=== PATIENT | female | born 1940 | race Caucasian/White ===

== ENCOUNTER 2025-01-09 22:24 | Emergency (ER) | payer MEDICARE, OTHER, SELFPAY ==
[2025-01-09 22:25] VITALS: BMI 44.2
[2025-01-09 22:26] VITALS: BP 163/83
[2025-01-09 22:51] LABS: Hematocrit 34.5 % (37.0-47.0); Hemoglobin 11.9 g/dL (12.0-16.0); Mean Corp Hgb Conc. 34.5 g/dL (33.0-37.0); Mean Corpuscular Volume 81.9 fL (81.0-99.0); Nucleated Red Blood Cells % 0 %; Platelet Count 272 10^3/uL (130-400); Red Cell Dist. Width 14.1 % (11.5-14.5)
[2025-01-09 23:10] LABS: ALT (SGPT) 18 U/L (0-35); AST (SGOT) 20 U/L (14-36); Albumin 4.6 g/dl (3.5-5.0); Alkaline Phosphatase 91 U/L (38-126); Blood Urea Nitrogen 14 mg/dl (7-17); Calcium 9.3 mg/dl (8.4-10.2); Carbon Dioxide 26 mmol/L (22-30); Chloride 99 mmol/L (98-107); Glucose 119 mg/dl (70-99); Potassium 4.0 mmol/L (3.5-5.1); Sodium 131 mmol/L (135-145); Total Protein 7.4 g/dl (6.3-8.2); eGFR > 60.00
[2025-01-09 23:15] LABS: Troponin I < 0.012 ng/ml
[2025-01-10 00:32] VITALS: BP 136/63
[2025-01-10 00:34] VITALS: BP 132/63
[2025-01-10 02:31] VITALS: BP 136/69
[2025-01-10 03:00] VITALS: BP 143/75
[2025-01-10 03:30] VITALS: BP 151/63
--- NOTE | 2025-01-10 03:37 | ED.GENMED ---
History of Present Illness
General
Chief Complaint: Blood Pressure Problem
Source: patient
Exam Limitations: none
Time Seen by Provider: 01/10/25 00:04
Nursing documentation reviewed up to this point in time: agreed with
History of Present Illness
History of Present Illness:
Note:
CHIEF COMPLAINT(S)
Numbness in both arms for two days and pain in the left arm and leg.
HISTORY OF PRESENT ILLNESS
The patient is an 84-year-old female who presents with numbness in both arms for two days and pain in the left arm and leg. Her temperature was checked and recorded at approximately 37.5�C. The patient initially hypothesized a viral cause for the
myalgia and took NyQuil. However, shortly thereafter, her blood pressure was found to be elevated at 180/100 mmHg in both arms, which was considered abnormal given her typical symptoms when experiencing hypertensive episodes. Despite elevated blood
pressures shortly after taking NyQuil, her current blood pressures and cardiac laboratory results appear to be within normal limits.
During the visit, it was noted that palpation caused increased discomfort, suggesting tenderness upon pressure. The patient denied any additional symptoms such as blurred vision, headaches, jaw pain, or slurred speech. The pain and numbness
continued despite the stable vital signs, leading to the decision to pursue further diagnostic imaging.
PAST MEDICAL AND SURGICAL HISTORY
Patient currently using Nifedipine for blood pressure management.
REVIEW OF SYSTEMS
- Neurological: Numbness in bilateral arms
- Musculoskeletal: Pain particularly in the left arm and leg.
- Constitutional: Temperature of 37.5�C
PHYSICAL EXAM
General: Alert, no acute distress.
Skin: Warm, dry.
Head: Normocephalic, atraumatic.
Neck: Supple, trachea midline.
Eye Ears, nose, mouth, and throat: Oral mucosa moist.
Cardiovascular: Normal peripheral perfusion, No edema.
Respiratory: Respirations are non-labored.
Gastrointestinal: Abdomen nondistended.
Back: Normal range of motion, Normal alignment.
Musculoskeletal: Tenderness upon palpation, otherwise normal range of motion and strength.
Neurological: Alert and oriented to person, place, time, and situation, No focal neurological deficit observed.
Psychiatric: Cooperative, appropriate mood & affect.
PLAN
- Consider administration of Tylenol for pain management over the next few days.
- Conduct a CT scan of the head to further evaluate the cause of the numbness and pain, though not urgently indicative.
DIFFERENTIAL DIAGNOSIS
The Differential Diagnosis includes, in no particular order and is not limited to:
1. Cervical radiculopathy
2. Peripheral neuropathy
3. Carpal tunnel syndrome
4. Brachial plexus neuropathy
5. Stroke or transient ischemic attack
6. Hypertension-related effects
7. Viral infection with myalgia
8. Medication side effects
9. Mild anemia or electrolyte imbalance
10. Musculoskeletal strain
Disposition:
SUMMARY OF ENCOUNTER
The patient, an 84-year-old female with a history of hypertension, presented to the emergency department with complaints of bilateral arm pain that began a few days ago. On arrival, the symptoms had resolved. The patient�s daughter had administered
NyQuil at home prior to the visit. A CT scan was conducted and yielded negative results for any acute findings.
DISPOSITION
Discharge
PLAN
Consider administration of acetaminophen for pain management over the next few days.
INDEPENDENT REVIEW OF LABS AND INTERPRETATION OF TESTS
My independent interpretation of the CT scan indicates negative results with no acute findings.
FOLLOW-UP INSTRUCTIONS
Please follow up with primary care provider for further evaluation and management as needed.
MEDICAL DECISION MAKING
- Number and Complexity of Problems Addressed: Chronic conditions affecting care include hypertension. The differential diagnosis considered includes: cervical radiculopathy, peripheral neuropathy, carpal tunnel syndrome, brachial plexus neuropathy,
stroke or transient ischemic attack, hypertension-related effects, viral infection with myalgia, medication side effects, mild anemia or electrolyte imbalance, and musculoskeletal strain.
- Risk: Consideration of Admission/Observation: Escalation of care including admission/observation was considered given the complexity and risk of the patients presenting complaint, exam findings, and/or their underlying comorbidities. However,
ultimately, I feel the patient is safe for outpatient management with close follow-up. Reasoning: Work-up is reassuring, does not reveal any acute life/organ threatening processes, patients symptoms are well-controlled upon reevaluation,
reexamination is reassuring, vitals are stable, patient agreeable with discharge, and reliable for follow-up.
DIAGNOSIS
- Hypertension, unspecified (I10)
- Pain in upper limb, unspecified (M79.60)
Past History
Past History
ED Past Medical History: HTN and Hypercholesterolemia
Patient has exhibited threatening behavior?: No
Social History
Tobacco: Non-smoker
Alcohol: None
Drug: None
Living: with family
Phy Exam
Physical Exam
Physical Exam:
.
Course
Orders/Labs/Results
Orders:
Orders
01/09/25 22:32
Electrocardiogram (*1) Urgent
Reason for Study: Chest Pain
EKG- Treatment ONCE
01/09/25 22:42
Complete Blood Count/With Diff Urgent
Comprehensive Metabolic Panel Urgent
Troponin I Urgent
01/10/25 01:01
CT Head W/o Iv Contrast Urgent
Comment:
Reason For Exam: parestehesia
Abnormal Lab Results
01/09/25
22:42
Hgb 11.9 L g/dL
(12.0-16.0)
Hct 34.5 L %
(37.0-47.0)
Absolute Monos (auto) 0.8 H 10^3/uL
(0.1-0.6)
Lymphocytes % 20.2 L %
(20.5-51.1)
Monocytes % 9.9 H %
(1.7-9.3)
Sodium 131 L mmol/L
(135-145)
Glucose 119 H mg/dl
(70-99)
01/09/25 22:42
01/09/25 22:42
Vital Signs
Initial and Last Documented VS:
Initial Vital Signs
Temp Pulse Resp BP Pulse Ox
98.3 F 84 18 163/83 95
01/09/25 22:26 01/09/25 22:26 01/09/25 22:26 01/09/25 22:26 01/09/25 22:26
Last Documented Vital Signs
Temp Pulse Resp BP Pulse Ox
98.2 F 71 16 151/63 95
01/10/25 00:34 01/10/25 02:00 01/10/25 02:00 01/10/25 03:30 01/10/25 03:30
*Radiology
Radiology exam reviewed: radiology read reviewed
*Pulse Oximetry
SaO2: 95
Oxygen Mode of Delivery: Room air
Patient hypoxic: no
*Critical Care Note
Total Time (30-74mins, 75-104mins- exclusive of procedures): Not Applicable
Update Note
Update Note:
NAME: ABDIRASHID CHAMBERS
DATE OF EXAM: 01/10/2025
Patient No: [id number]
Physician: BRAYAN
Date of : 1940
Past Medical History (entered by Technologist):
Reason For Exam (entered by Technologist):
Other Notes (entered by Technologist): Pt arrives with daughter who is translating Macanese, pt arrives via EMS for HTN and daughter states that pt has had arm pain x 2 day. Denies trauma. Tonight pt told daughter she was having leg pain. Daughter
gave her nyquil before bedtime.
Additional Information (per [facility]):
CT HEAD
IMPRESSION:
No acute hemorrhage, herniation, or hydrocephalus. 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
No calvarial fracture.
The visualized paranasal sinuses and mastoid air cells are clear.
Case finalized on Jan 10 2025 2:57AM ET
Keith Lundberg M.D.
This report has been electronically signed and verified by the Radiologist whose name is printed above.
ED Attending Note
-
Portions of this chart may have been created with voice recognition software.� Occasional wrong word or��sound alike� substitutions may have occurred due to the inherent limitations of voice recognition software.
Discharge Plan
Departure
Patient Disposition: Home (Routine Discharge)
Date of Disposition: 01/10/25
Time of Disposition: 03:39
Patient with high blood pressure during this ER visit?: Yes
Condition: Good
Discharge Problem:
Musculoskeletal limb pain, Peripheral neuropathy, Hypertension
Instructions: High Blood Pressure (DC), Peripheral neuropathy
Prescriptions:
No Action
enalapril-hydrochlorothiazide 5-12.5 mg tablet
1 tab PO DAILY
aspirin 81 mg Tablet,Delayed Release (Dr/Ec)
81 mg PO DAILY
cholecalciferol (vitamin D3) [Vitamin D3] 50 mcg (2,000 unit) Capsule
50 mcg PO DAILY
prochlorperazine maleate 5 mg Tablet
5 mg PO Q6HPRN PRN (Reason: vertigo) Qty: 30 0RF
amlodipine 5 mg Tablet
5 mg PO DAILY Qty: 30 0RF
meclizine 25 mg Tablet
25 mg PO TID PRN (Reason: vertigo) Qty: 60 0RF
Referrals:
PRIVATE,PHYSICIAN [Family Provider, Internal Medicine]
Interventions
Interventions:
*Risk Screen - Suicide Last Done: 01/09/25 22:26
*General Assessment Last Done: 01/10/25 00:41
*Neglect/Abuse Screening Last Done: 01/09/25 22:26
*ED- Fall Risk Assessment Last Done: 01/10/25 00:41
ED- Cardiac Assessment Last Done: 01/10/25 00:41
ED- Neurological Assessment Last Done: 01/10/25 00:41
ED- Pulmonary Assessment Last Done: 01/10/25 00:41
Discharge Date and Time
Print Language: Macanese
== END 2025-01-10 03:50 | disposition home or self-care (01) ==
LOC: EMR 22:24
PROVIDERS: Emergency Medicine; EMERGENCY PHYSICIAN Student in an Organized Health Care Education/Training Program
DX: M79.18 Myalgia, other site (principal); G62.9 Polyneuropathy, unspecified; I10 Essential (primary) hypertension; E78.00 Pure hypercholesterolemia, unspecified
CPT/HCPCS: 99284; 70450; 80053; 84484; 85025; 93005